=== PATIENT | female | born 1965 | race Two or more races ===

== ENCOUNTER 2023-06-15 08:21 | Emergency (ER) | payer OTHER ==
[~2023-06-15] VITALS: Ht 177.8 cm; Wt 129.3 kg
[2023-06-15] MEDS ORDERED: LOSARTAN-HCTZ1 EAC1 PO (08:30)
[2023-06-15] MEDS ORDERED: ZOCOR20 MG PO (08:31)
[2023-06-15] MEDS ORDERED: CIPRO500 MG PO (10:38)
[2023-06-15] MEDS ORDERED: ZOFRAN8 MG PO (10:38)
[2023-06-15] MEDS ORDERED: PEPCID AC20 MG PO (10:38)
[2023-06-15] MEDS ORDERED: INTESTINEX680 M1 PO (10:38)
== END 2023-06-15 10:49 | disposition home or self-care (01) ==
LOC: ER 08:21
DX: A08.39 Other viral enteritis (principal); Z20.822 Contact with and (suspected) exposure to COVID-19; I10 Essential (primary) hypertension